=== PATIENT | female | born 1995 | race African-American/Black ===

== ENCOUNTER 2021-05-11 15:00 | Emergency (ER) | payer OTHER, SELFPAY ==
[2021-05-11 15:12] VITALS: BP 109/50; PULSE 87; RESP 17; TEMP 36.4; O2SAT 100
[2021-05-11 15:54] VITALS: BP 109/50; PULSE 87; RESP 16; TEMP 36.4; O2SAT 96
[2021-05-11 17:08] LABS: Basophils Absolute Auto 0.1 K/mm3 (0.0-0.1); Basophils Percent Auto 0.7 % (0.2-1.2); Eosinophils Absolute Auto 0.1 K/mm3 (0-0.3); Eosinophils Percent Auto 1.5 % (0-4.4); Hematocrit 37.2 % (37.0-47.0); Hemoglobin 11.7 g/dL (12.0-15.0); Immature Granulocyte Absolute 0.01 K/mm3 (0.00-0.031); Immature Granulocyte Percent A 0.1 % (0-0.5); Lymphocytes Absolute Auto 1.37 K/mm3 (0.9-3.2); Lymphocytes Percent Auto 19.2 % (18.3-44.2); Mean Corpuscular HGB Conc 31.5 g/dl (32-36); Mean Corpuscular Hemoglobin 27.2 pg (26-34); Mean Corpuscular Volume 86.5 fl (80-100); Mean Platelet Volume 9.8 fl (7.4-10.4); Monocytes Absolute Auto 0.6 K/mm3 (0.1-0.6); Monocytes Percent Auto 7.8 % (2.6-8.5); Neutrophils Percent Auto 70.7 % (45.5-73.1); Platelet Count Result 411 k/mm3 (150-375); Red Cell Distribution Width 13.8 % (11.5-14.5); White Blood Count 7.1 K/mm3 (4.5-10.0)
--- NOTE | 2021-05-11 17:09 | ED.NECK ---
HPI - Neck Pain/Injury General Chief Complaint: Neck Pain/Injury Stated Complaint: SIDE OF NECK SORE Time Seen by Provider: 05/11/21 16:22 Source: patient History of Present Illness HPI Narrative: Patient presents with left-sided neck and jaw pain. Reports symptoms present for approximately 2 weeks and are additionally very mild today they seem more severe so she wanted come in to be evaluated. Her pain is achy, constant, worse with chewing, no radiation. She denies taking any medications to alleviate her symptoms and is not been evaluated for previously. She denies fevers, cough, congestion she denies difficulty swallowing she denies focal dental pain Related Data Allergies Allergy/AdvReac Type Severity Reaction Status Date / Time No Known Allergies Allergy Unverified 11/03/16 20:36 Review of Systems Review of Systems: CONSTITUTIONAL: Denies fever, chills, or sweats. EYES: Denies visual changes, redness, or discharge. ENT: Denies rhinorrhea, congestion, sore throat, or otalgia. CARDIOVASCULAR: Denies chest pain, palpitations, or edema. RESPIRATORY: Denies cough or dyspnea. GASTROINTESTINAL: Denies abdominal pain, nausea, vomiting, or diarrhea. GENITOURINARY: Denies dysuria or hematuria. SKIN: Denies rash or itching. MUSCULOSKELETAL: Denies back pain, joint pain, or myalgia. NEUROLOGIC: Denies headache, numbness, dizziness, or weakness. PSYCHIATRIC: Denies anxiety or depression. All systems reviewed & are unremarkable except as noted in HPI and below Exam Narrative: GENERAL: Well-appearing, well-nourished, and in no acute distress. HEAD: Normocephalic, atraumatic. EYES: PERRLA and EOMI. ENT: Nares clear, no rhinorrhea or epistaxis. Mucous membranes moist. TMs clear bilaterally EACs clear bilaterally NECK: Supple. No masses. Minimal tenderness left submandibular area and left anterior cervical area EXTREMITIES: Normal range of motion. No edema. SKIN: Warm, dry, no rash. Acne present on the face no focal areas of fluctuance NEURO: No focal deficits. Alert and oriented x3. PSYCH: Normal mood and affect. Course Reevaluation(s) Reevaluation #1: Patient resting comfortably results and work-up reviewed with patient. Patient comfortable outpatient plan. Date: 05/11/21 Time: 17:44 Vital Signs Vital signs: Vital Signs Temperature 36.4 C L 05/11/21 15:12 Pulse Rate 87 05/11/21 15:12 Respiratory Rate 17 05/11/21 15:12 Blood Pressure 109/50 L 05/11/21 15:12 Pulse Oximetry 100 05/11/21 15:12 Temperature 36.4 C L 05/11/21 15:54 Pulse Rate 87 05/11/21 15:54 Respiratory Rate 16 05/11/21 15:54 Blood Pressure 109/50 L 05/11/21 15:54 Pulse Oximetry 96 05/11/21 15:54 MDM - Neck Pain/Injury MDM Narrative Medical decision making narrative: H&P as above, vss, pt looks clinically well, exam without evidence of airway compromise or focal fluctuance to suggest abscess, labs clinically unremarkable, additional labs/img considered, symptomatic relief available as needed, on reevaluation pt continues to looks clinically well. Suspect lymphadenopathy, dns airway compromise, strep pharyngitis, dental abscess, peritonsillar abscess. plan to tx/monitor as op w/ pcm f/u findings/plan discussed with pt, pt agree/comfortable with plan, return precautions given Lab Data Result diagrams: 05/11/21 16:50 05/11/21 16:50 Labs: Lab Results 05/11/21 05/11/21 Range/Units 16:50 16:50 WBC 7.1 (4.5-10.0) K/mm3 RBC 4.30 (4.2-5.4) M/mm3 Hgb 11.7 L (12.0-15.0) g/dL Hct 37.2 (37.0-47.0) % MCV 86.5 (80-100) fl MCH 27.2 (26-34) pg MCHC 31.5 L (32-36) g/dl RDW 13.8 (11.5-14.5) % Plt Count 411 H (150-375) k/mm3 MPV 9.8 (7.4-10.4) fl Immature Gran % (Auto) 0.1 (0-0.5) % Neut % (Auto) 70.7 (45.5-73.1) % Lymph % (Auto) 19.2 (18.3-44.2) % [place] % (Auto) 7.8 (2.6-8.5) % Eos % (Auto) 1.5 (0-4.4) % Baso % (Auto) 0.7 (0.2-1.2) % Lymph # (Aut
[2021-05-11 17:18] LABS: Anion Gap 13 mmol/L (8-16); Blood Urea Nitrogen 13 mg/dL (7-17); Calcium 10.4 mg/dL (8.4-10.2); Carbon Dioxide 25 mmol/L (22-30); Chloride 103 mmol/L (98-107); Estimated CRCL calculation 91 ml/min; Estimated Glomerular Filt Rate > 60; Glucose 92 mg/dL (65-110); Potassium 4.2 mmol/L (3.4-5.0); Sodium 141 mmol/L (137-145)
== END 2021-05-11 18:00 | disposition home or self-care (01) ==
PROVIDERS: Emergency Provider Emergency Medicine
DX: R59.9 Enlarged lymph nodes, unspecified (principal)
CPT/HCPCS: 36415; 80048; 85025; 99283

== ENCOUNTER 2021-08-09 18:16 | Emergency (ER) | payer OTHER, SELFPAY ==
--- NOTE | ~2021-08-09 | XR_ITS ---
EXAMINATION: XR chest 1V portable EXAM DATE: 08/10/2021 01:56 INDICATION: COVID+,Sore Throat,Body Aches, N/V . TECHNIQUE: Portable AP frontal chest x-ray was obtained. There is no prior study for comparison. FINDINGS: The lungs are clear. There are no pleural effusions. Cardiomediastinal silhouette is nor mal. There is no pneumothorax suspected. The bones and soft tissues are unremarkable. IMPRESSION: No acute cardiopulmonary findings. Reviewed, dictated and finalized at location A. [employer]
[2021-08-09 18:22] VITALS: BP 117/99; PULSE 106; RESP 20; TEMP 37.1; O2SAT 99
[2021-08-09 20:20] VITALS: BP 109/57; PULSE 97; TEMP 39; O2SAT 98
[2021-08-09 22:56] VITALS: BP 98/61; PULSE 103; RESP 18; O2SAT 99
[2021-08-10 01:14] VITALS: BP 113/55; PULSE 92; RESP 16; TEMP 37; O2SAT 100
[2021-08-10 01:36] VITALS: BP 104/67; PULSE 96; O2SAT 100
--- NOTE | 2021-08-10 01:37 | ED.NAVMDI ---
HPI - Nausea/Vomiting/Diarrhea General Chief complaint: Nausea/Vomiting/Diarrhea Stated complaint: Covid-19+ fever and cough Time Seen by Provider: 08/10/21 01:32 Source: RN notes reviewed History of Present Illness HPI Narrative: Patient presents emergency department from home for nausea vomiting. Patient states that she began to have symptoms of COVID-19 yesterday she states that she had had a cough that been nonproductive as well as a low-grade fever she states that time she gone to [facility] and have been seen in the waiting room and had a positive Covid test but had left prior to making it to her room she states she can have a multiple episodes of nausea vomiting and come to the emergency further evaluation states she is unable to keep anything down today. States cough has been mildly productive but denies any chest pain or shortness of breath she denies any diarrhea or any other symptoms Related Data Home Medications Medication Instructions Recorded Confirmed norgestimate-ethinyl estradiol tablet 08/10/21 [Tri-Sprintec (28)] Allergies Allergy/AdvReac Type Severity Reaction Status Date / Time No Known Allergies Allergy Verified 08/10/21 01:40 Review of Systems Review of Systems: Gen.: Denies fevers or chills Eyes: Denies eye pain or visual change ENT: Denies congestion Respiratory: Denies shortness of breath ports cough CV: Denies chest pain or palpitations GI: Reports nausea and vomiting. Denies abdominal pain or diarrhea denies burning, urgency, frequency or hematuria Musculoskeletal: Denies back pain or muscle pain Neuro: Denies numbness, tingling, weakness or focal weakness Skin: Denies rash Except as documented, all other systems reviewed and negative [facility] Past Medical History Medical History (Updated 08/10/21 @ 04:25 by Eugene Carroll DO) COVID-19 Social History Social History (Updated 08/10/21 @ 01:38 by Eugene Carroll DO) Smoking status: Never smoker Exam Narrative: APPEARANCE: No acute distress, nontoxic, resting in bed EYES: EOMI HEENT: Normocephalic, atraumatic, OMM RESPIRATORY: No respiratory distress Clear to auscultation bilaterally with no rhonchi wheezing or rales. CARDIOVASCULAR: Regular rate and rhythm without murmurs rubs or gallops. ABDOMINAL: Soft, nontender, nondistended, no rebound or guarding MUSCULOSKELETAl: Moves all extremities. No clubbing, cyanosis or edema. NEURO: Awake and alert. Following commands, speech normal, no focal deficits SKIN:: Warm, dry. No rashes lesions or abrasions PSYCHIATRIC: Normal affect/mood, Course Course Emergency Course: Patient states she is feeling much better able to eat and drink in ED with no difficulties no emesis Discussed with patient results of workup and diagnosis. Discussed need for follow-up with primary care, proper use of medication, and reasons to return to the emergency department. Patient understands and agrees to current treatment plan Vital Signs Vital signs: Vital Signs Temperature 98.7 F 08/09/21 18:22 Pulse Rate 106 H 08/09/21 18:22 Respiratory Rate 20 08/09/21 18:22 Blood Pressure 117/99 H 08/09/21 18:22 Pulse Oximetry 99 08/09/21 18:22 Temperature 98.6 F 08/10/21 01:14 Pulse Rate 61 08/10/21 03:31 Respiratory Rate 19 08/10/21 03:31 Blood Pressure 107/65 08/10/21 03:31 Pulse Oximetry 100 08/10/21 03:31 MDM - Nausea/Vomiting/Diarrhea Lab Data Result diagrams: 08/10/21 01:56 08/10/21 02:22 Labs: Lab Results 08/10/21 08/10/21 08/10/21 Range/Units 01:56 01:56 02:22 WBC 4.2 L (4.5-10.0) K/mm3 RBC 4.09 L (4.2-5.4) M/mm3 Hgb 11.0 L (12.0-15.0) g/dL Hct 35.1 L (37.0-47.0) % MCV 85.8 (80-100) fl MCH 26.9 (26-34) pg MCHC 31.3 L (32-36) g/dl RDW 15.4 H (11.5-14.5) % Plt Count 261 (150-375) k/mm3 MPV 10.1 (7.4-10.4) fl Immature Gran % (Auto) 0.5 (0-0.5) % Neut % (Auto)
[2021-08-10 01:55] VITALS: BP 105/69; PULSE 102; RESP 30; O2SAT 100
[2021-08-10 02:05] LABS: Basophils Percent Auto 0.5 % (0.2-1.2); Hematocrit 35.1 % (37.0-47.0); Immature Granulocyte Absolute 0.02 K/mm3 (0.00-0.031); Immature Granulocyte Percent A 0.5 % (0-0.5); Mean Corpuscular HGB Conc 31.3 g/dl (32-36); Mean Corpuscular Hemoglobin 26.9 pg (26-34); Mean Corpuscular Volume 85.8 fl (80-100); Mean Platelet Volume 10.1 fl (7.4-10.4); Monocytes Percent Auto 24.4 % (2.6-8.5); Neutrophils Absolute Auto 2.6 K/mm3 (1.3-6.7); Neutrophils Percent Auto 62.6 % (45.5-73.1); Platelet Count Result 261 k/mm3 (150-375); Red Blood Count 4.09 M/mm3 (4.2-5.4); Red Cell Distribution Width 15.4 % (11.5-14.5); White Blood Count 4.2 K/mm3 (4.5-10.0)
[2021-08-10 02:08] LABS: Add Urine Microscopic? YES; Appearance Urine Clear (Clear); Bacteria Urine Trace /hpf; Bilirubin Urine Negative (Negative); Blood Urine Negative (Negative); Color Urine Yellow (Yellow); Glucose Urine UA Negative (Negative); Ketones Urine 2+ mg/dL (Negative); Leukocyte Esterase Ur Negative LEU/UL (Negative); Mucus Urine Heavy /lpf; Nitrate Urine Negative (Negative); Protein Urine 1+ mg/dL (Negative); Specific Grav Ur 1.026 (1.001-1.035); Squamous Epithelial Cell Urine Moderate /hpf (Few); Urobilinogen Urine Negative mg/dL (<2.0)
[2021-08-10] MEDS: SODIUM CHLORIDE 0.9% IV 1,000 ML 999 ML IV CONT ×2 (02:14→03:14)
[2021-08-10] MEDS: KETOROLAC 30 MG/ML VIAL (*BKC) IV PUSH (02:14)
[2021-08-10] MEDS: ONDANSETRON INJ 4 MG/2 ML VIAL IV PUSH (02:14)
[2021-08-10] MEDS: FAMOTIDINE 20 MG/2 ML VIAL IV PUSH (02:15)
[2021-08-10 02:38] LABS: Alanine Aminotransferase 40 U/L (4-35); Alkaline Phosphatase 47 U/L (38-126); Anion Gap 5 mmol/L (8-16); Aspartate Amino Transferase 44 U/L (14-36); Bilirubin,Total 0.4 mg/dL (0.2-1.3); Blood Urea Nitrogen 11 mg/dL (7-17); Calcium 8.6 mg/dL (8.4-10.2); Carbon Dioxide 21 mmol/L (22-30); Chloride 107 mmol/L (98-107); Estimated CRCL calculation 94 ml/min; Estimated Glomerular Filt Rate > 60; Glucose 89 mg/dL (65-110); Lipase 50 U/L (23-300); Sodium 133 mmol/L (137-145)
[2021-08-10 03:31] VITALS: BP 107/65; PULSE 61; RESP 19; O2SAT 100
[2021-08-10 04:28] VITALS: BP 109/67; PULSE 65; RESP 19; O2SAT 100
== END 2021-08-10 04:35 | disposition home or self-care (01) ==
PROVIDERS: Emergency Provider Emergency Medicine
DX: U07.1 COVID-19 (principal)
CPT/HCPCS: 36415; 71045; 80053; 81001; 81025; 83690; 85025; 96361; 96374; 96375; 99284; J1885; J2405; J7030